=== PATIENT | male | born 1960 | race Caucasian/White ===

== ENCOUNTER 2025-05-17 17:17 | Emergency (ER) | payer MEDICARE, OTHER | END 2025-05-17 20:10 | disposition home or self-care (01) | LOC: VM.ED 17:17 | DX: S52.024A Nondisplaced fracture of olecranon process without intraarticular extension of right ulna, initial encounter for closed fracture (principal); X58.XXXA Exposure to other specified factors, initial encounter | CPT/HCPCS: 29105; 73080-RT; 99283; 99283-25 ==